=== PATIENT | male | born 1970 | race Caucasian/White ===

== ENCOUNTER → 2021-02-09 | Outpatient (CLI) | payer OTHER ==
--- NOTE | 2021-02-09 09:44 | REP ---
INDICATION: ALCOHOLIC CIRRHOSIS OF LIVER. COMPARISON: None. TECHNIQUE: Real-time sonographic evaluation of ABDOMEN PERFORMED, WITH DUPLEX DOPPLER EVALUATION OF PORTAL VASCULATURE. FINDINGS: Gallbladder is distended with minimal sludge, at least 1 gallstone measuring 9 mm. There is no gallbladder wall thickening. There is no intrahepatic or extrahepatic biliary dilatation, common bile duct measures 3 mm in maximum diameter. The liver demonstrates diffuse heterogeneous increased echotexture compatible with diffuse fibrofatty infiltration. The length of the liver is 17.6 cm. There is a simple cyst in the right lobe of the liver 7 mm in diameter. The visualized pancreas is grossly unremarkable, not well seen due to overlying bowel gas. The spleen is enlarged measuring 14.3 x 13.8 x 6.1 cm, splenic index is 06/05/2002. There is no evidence of hydronephrosis, cyst, mass, or calculus in either kidney. The right kidney measures 12.5 x 5.5 x 5.4 cm. Left renal dimensions are 12.5 x 4.9 x 6.0 cm. The abdominal aorta is normal in caliber with no aneurysm. Trace free fluid is seen scattered in the abdomen. The main portal vein measures 15 mm in diameter. The splenic vein and portal veins demonstrate normal direction of flow, with normal flow velocities and waveforms. There is no portal vein thrombosis. Hepatic veins are patent with no thrombus. Patent main hepatic artery demonstrates peak systolic velocity of 79.3 centimeters/second. The superior mesenteric vein and a peripheral splenic vein are not visualized due to overlying bowel gas. There is mild portalization of the hepatic venous waveforms. IMPRESSION: Distended gallbladder containing minimal sludge and at least 1 gallstone. No gallbladder wall thickening or biliary dilatation. Diffuse fibrofatty infiltration of the liver with no suspicious mass. Splenomegaly. Trace free fluid. Mildly prominent diameter of the main portal vein suggests some degree of portal hypertension. Portal vasculature demonstrates normal direction of flow with no thrombosis. No evidence of hepatic vein thrombosis. <Electronically signed by Forrest Dutton > 02/09/21 1370
== END ==
LOC: M RAD 08:28
PROVIDERS: ATTEND Internal Medicine Gastroenterology
DX: K70.31 Alcoholic cirrhosis of liver with ascites (principal); K80.20 Calculus of gallbladder without cholecystitis without obstruction; K76.89 Other specified diseases of liver; R16.1 Splenomegaly, not elsewhere classified

== ENCOUNTER 2021-03-07 07:15 | Day surgery (SDC) | payer OTHER ==
[~2021-03-07] VITALS: Ht 182.9 cm; Wt 97.5 kg
[~2021-03-07 07:15] MED LIST: B-1100TA2; BUSP5TA; FOLI1TAB11; FURO40TA2; NS 1,000 ML IV ONE; PANT40TA29; SERT50TA29; SPIR100T3; THIA100T22
[2021-03-07] MEDS ORDERED: propofoL 500 MG/50 ML VIAL As Ordered ONE (07:54)
[2021-03-07] MEDS ORDERED: LIDOCAINE 2% 100MG/5ML SDV (FOR ANES.) As Ordered ONE (07:54)
[2021-03-07] MEDS ORDERED: fentaNYL 100 MCG/2 ML INJECTION (J3010) As Ordered ONE (07:54)
--- NOTE | 2021-03-07 09:38 | ROOR ---
Patient Name: Lexx Yoon Procedure Date: 03/07/2021 8:53 AM Date of : 1970 Age: 51 Room: [facility] Gender: Male Note Status: Finalized Procedure: Upper GI endoscopy Indications: Cirrhosis rule out esophageal varices Providers: Jesu Coats MD Referring MD: Arnel Valderrama Md Requesting Provider: Medicines: Monitored Anesthesia Care Complications: No immediate complications. Procedure: Pre-Anesthesia Assessment: - Prior to the procedure, a History and Physical was performed, and patient medications and allergies were reviewed. The patient is competent. The risks and benefits of the procedure and the sedation options and risks were discussed with the patient. All questions were answered and informed consent was obtained. Patient identification and proposed procedure were verified by the physician, the nurse and the anesthesiologist in the procedure room. Mental Status Examination: alert and oriented. Airway Examination: normal oropharyngeal airway and neck mobility. Respiratory Examination: clear to auscultation. CV Examination: normal. Prophylactic Antibiotics: The patient does not require prophylactic antibiotics. Prior Anticoagulants: The patient has taken no previous anticoagulant or antiplatelet agents. ASA Grade Assessment: II - A patient with mild systemic disease. After reviewing the risks and benefits, the patient was deemed in satisfactory condition to undergo the procedure. The anesthesia plan was to use monitored anesthesia care (MAC). Immediately prior to administration of medications, the patient was re-assessed for adequacy to receive sedatives. The heart rate, respiratory rate, oxygen saturations, blood pressure, adequacy of pulmonary ventilation, and response to care were monitored throughout the procedure. The physical status of the patient was re-assessed after the procedure. The Endoscope was introduced through the mouth, and advanced to the second part of duodenum. The upper GI endoscopy was accomplished without difficulty. The patient tolerated the procedure well. Findings: Two columns of non-bleeding grade II, large (> 5 mm) varices were found in the lower third of the esophagus,. No stigmata of recent bleeding were evident and red deb signs were present. Two bands were successfully placed with complete eradication, resulting in deflation of varices. There was no bleeding during and at the end of the procedure. Diffuse moderate inflammation characterized by congestion (edema) and granularity was found in the gastric body and in the gastric antrum. Biopsies were taken with a cold forceps for Helicobacter pylori testing. Verification of patient identification for the specimen was done by the physician and nurse using the patient's name, date and medical record number. Estimated blood loss was minimal. The duodenal bulb and second portion of the duodenum were normal. Impression: - Non-bleeding grade II and large (> 5 mm) esophageal varices. Completely eradicated. Banded. - Gastritis. Biopsied. - Normal duodenal bulb and second portion of the duodenum. Recommendation: - Patient has a contact number available for emergencies. The signs and symptoms of potential delayed complications were discussed with the patient. Return to normal activities tomorrow. Written discharge instructions were provided to the patient. - Clear liquid diet for 1 day, then advance as tolerated to high fiber diet and low sodium diet. - Continue present medications. - Await pathology results. - Repeat upper endoscopy in 1 year for surveillance. - Telephone GI clinic for pathology results in 1 week. - Return to GI clinic in [facility] (address: [address] [place] [address], [address] [place] [address], [place], [place],[address]) in 4 -- 6 weeks. Please call GI clinic @ [phone] for apppointment date and time. - Return to primary care physician. Procedure Code(s): --- Professional --- 71006, Esophagogastroduodenoscopy, flexible, transoral; with band ligation of esophageal/gastric varices 95809, Esophagogastroduodenoscopy, flexible, transoral; with biopsy, single or multiple Diagnosis Code(s): --- Professional --- K74.60, Unspecified cirrhosis of liver I85.10, Secondary esophageal varices without bleeding K29.70, Gastritis, unspecified, without bleeding CPT copyright 2019 [employer]. All rights reserved. The codes documented in this report are preliminary and upon trimmer tailer review may be revised to meet current compliance requirements. Jesu Coats MD Jesu Coats MD 03/07/2021 9:38:05 AM Electronically signed by Jesu Coats MD Number of Addenda: 0 Note Initiated On: 03/07/2021 8:53 AM Estimated Blood Loss: Estimated blood loss was minimal.
[2021-03-07 10:00] VITALS: BP 117/71
--- NOTE | 2021-03-07 10:19 | ROOR ---
Patient Name: Lexx Yoon Procedure Date: 03/07/2021 8:53 AM Date of : 1970 Age: 51 Room: [facility] Gender: Male Note Status: Finalized Procedure: Colonoscopy Indications: Screening for colorectal malignant neoplasm Providers: Jesu Coats MD Referring MD: Arnel Valderrama Md Requesting Provider: Medicines: Monitored Anesthesia Care Complications: No immediate complications. Procedure: Pre-Anesthesia Assessment: - Prior to the procedure, a History and Physical was performed, and patient medications and allergies were reviewed. The patient is competent. The risks and benefits of the procedure and the sedation options and risks were discussed with the patient. All questions were answered and informed consent was obtained. Patient identification and proposed procedure were verified by the physician, the nurse and the anesthesiologist in the procedure room. Mental Status Examination: alert and oriented. Airway Examination: normal oropharyngeal airway and neck mobility. Respiratory Examination: clear to auscultation. CV Examination: normal. Prophylactic Antibiotics: The patient does not require prophylactic antibiotics. Prior Anticoagulants: The patient has taken no previous anticoagulant or antiplatelet agents. ASA Grade Assessment: II - A patient with mild systemic disease. After reviewing the risks and benefits, the patient was deemed in satisfactory condition to undergo the procedure. The anesthesia plan was to use monitored anesthesia care (MAC). Immediately prior to administration of medications, the patient was re-assessed for adequacy to receive sedatives. The heart rate, respiratory rate, oxygen saturations, blood pressure, adequacy of pulmonary ventilation, and response to care were monitored throughout the procedure. The physical status of the patient was re-assessed after the procedure. The Colonoscope was introduced through the anus and advanced to the terminal ileum, with identification of the appendiceal orifice and IC valve. The colonoscopy was performed without difficulty. The patient tolerated the procedure well. The quality of the bowel preparation was good. The terminal ileum, ileocecal valve, appendiceal orifice, and rectum were photographed. Scope insertion time was 3 minutes. Scope withdrawal time was 9 minutes. The total duration of the procedure was 12 minutes. Findings: The perianal and digital rectal examinations were normal. The terminal ileum appeared normal. A 4 mm polyp was found in the descending colon. The polyp was sessile. The polyp was removed with a cold snare. Resection and retrieval were complete. Verification of patient identification for the specimen was done by the physician and nurse using the patient's name, date and medical record number. Estimated blood loss was minimal. Multiple small and large-mouthed diverticula were found from sigmoid to ascending colon. There was no evidence of diverticular bleeding. Non-bleeding external and internal hemorrhoids were found during retroflexion. The hemorrhoids were medium-sized. Impression: - The examined portion of the ileum was normal. - One 4 mm polyp in the descending colon, removed with a cold snare. Resected and retrieved. - Moderate diverticulosis from sigmoid to ascending colon. There was no evidence of diverticular bleeding. - Non-bleeding external and internal hemorrhoids. Recommendation: - Patient has a contact number available for emergencies. The signs and symptoms of potential delayed complications were discussed with the patient. Return to normal activities tomorrow. Written discharge instructions were provided to the patient. - Clear liquid diet for 1 day, then advance as tolerated to high fiber diet and low sodium diet. - Continue present medications. - Await pathology results. - Repeat colonoscopy in 5 years for surveillance based on pathology results. - Telephone GI clinic for pathology results in 2 weeks. - Return to GI clinic in [facility] (address: [address] [place] [address], [address] [place] [id number]) in 4 -- 6 weeks. Please call GI clinic @ [phone] for apppointment date and time. - Return to primary care physician. Procedure Code(s): --- Professional --- 84616, Colonoscopy, flexible; with removal of tumor(s), polyp(s), or other lesion(s) by snare technique Diagnosis Code(s): --- Professional --- Z12.11, Encounter for screening for malignant neoplasm of colon K64.8, Other hemorrhoids K63.5, Polyp of colon K57.30, Diverticulosis of large intestine without perforation or abscess without bleeding CPT copyright 2019 [employer]. All rights reserved. The codes documented in this report are preliminary and upon rail doweling machine operator review may be revised to meet current compliance requirements. Jesu Coats MD Jesu Coats MD 03/07/2021 10:19:17 AM Electronically signed by Jesu Coats MD Number of Addenda: 0 Note Initiated On: 03/07/2021 8:53 AM Estimated Blood Loss: Estimated blood loss was minimal.
== END 2021-03-07 11:48 | disposition home or self-care (01) ==
LOC: M OPP 07:15
PROVIDERS: ATTEND Internal Medicine Gastroenterology
DX: Z12.11 Encounter for screening for malignant neoplasm of colon (principal); D12.6 Benign neoplasm of colon, unspecified; K57.30 Diverticulosis of large intestine without perforation or abscess without bleeding; K64.8 Other hemorrhoids; K74.60 Unspecified cirrhosis of liver; I85.10 Secondary esophageal varices without bleeding; K29.70 Gastritis, unspecified, without bleeding; G47.30 Sleep apnea, unspecified; Z79.899 Other long term (current) drug therapy
CPT/HCPCS: 43239; 43244; 45385; 88305; J3010